=== PATIENT | female | born 1970 | race Caucasian/White ===

== ENCOUNTER 2024-06-23 06:55 | Inpatient (IN) ==
--- NOTE | 2024-05-08 11:57 | PAT Medication Instructions ---
Medication Instructions Date of Service May 08, 2024 Home Medications cholecalciferol (vitamin D3) 25 mcg (1,000 unit) tablet (Vitamin D3) 25 mcg PO DAILY cyanocobalamin (vitamin B-12) 1,000 mcg tablet (Vitamin B-12) 1,000 mcg PO DAILY ferrous sulfate 325 mg (65 mg iron) capsule,extended release 0 mg PO DAILY semaglutide (weight loss) 1.7 mg/0.75 mL subcutaneous pen injector (Wegovy) 1.7 mg subcut WK MEDICATION INSTRUCTIONS: DO NOT take the morning of surgery cholecalciferol (vitamin D3) 25 mcg (1,000 unit) tablet (Vitamin D3) 25 mcg PO DAILY cyanocobalamin (vitamin B-12) 1,000 mcg tablet (Vitamin B-12) 1,000 mcg PO DAILY ferrous sulfate 325 mg (65 mg iron) capsule,extended release 0 mg PO DAILY Other Notes NEED TO STOP 7 DAYS PRIOR TO SURGERY (may not take after 06/16/23): semaglutide (weight loss) 1.7 mg/0.75 mL subcutaneous pen injector (Wegovy) 1.7 mg subcut WK Remember: NOTHING TO EAT OR DRINK AFTER MIDNIGHT If you have any questions please call us at [phone] or [phone] or [phone] or [phone]
--- NOTE | 2024-05-29 09:40 | Anesthesiology Consultation ---
Date of Service May 29, 2024 Assessment & Plan (1) Encounter for pre-operative examination: - Check BSG DOS - Infectious disease screening: Per assessment on 05/29/24- No known recent infectious disease contacts or current infectious disease symptoms. - Medication instructions: Patient previously taking Semaglutide weekly which she states is now discontinued with last dose being 05/29/24. She was aware not to take GLP-1 weekly injectables 7 days prior to surgery. - Patient acceptable risk for surgery pending surgeon-ordered PCP preop evaluation (Dr. Fco Malagon, appt 06/10). Chart Review Chart Review: Patient seen in Pre Admission Testing Teaching & Discussion Pre-Anesthesia Teaching/Discussion Notes: Instructed NPO after midnight before surgery,except medications with 15 cc of water. Medication instructions provided according to the PAT guidelines. History Surgery Operation Date: 06/23/24 07:45 Proposed Procedures p L3-L4 Decompression and Fusion, L4-L5 Hardware Removal, Spinal Cord Monitoring - Caden Pepe, Height/Weight Height: 5 ft 2 in Weight: 92 kg Allergies Allergy/AdvReac Type Severity Reaction Status Date / Time aspirin Allergy Unknown Hives Verified 05/05/24 08:33 cefadroxil Allergy Unknown Hives Verified 05/05/24 08:33 Medications Home Medications Medication Instructions Recorded Confirmed Last Taken cyanocobalamin (vitamin B-12) 1,000 mcg PO DAILY 05/05/24 05/05/24 Unknown 1,000 mcg tablet (Vitamin B-12) Vitamin D3 2 tab PO DAILY 05/29/24 05/29/24 Unknown iron 18 mg tablet 18 mg PO DAILY 05/29/24 05/29/24 Unknown pediatric multivitamin no.76 1 tab PO DAILY 05/29/24 05/29/24 Unknown (Flintstones Complete chewable tablet) Past Medical History Medical History Low iron "Borderline" Lumbar stenosis Pre-diabetes Thyroid nodule Under surveillance, next follow up Spring 2025 TMJ (temporomandibular joint disorder) Dx 1990, multiple surgeries No locking in past several years Exercise / Class Metabolic Activity III < 4 Walking/Shop/Light housework Past Family History Family History Other Family history of colon cancer in mother Past Surgical History Surgical History History of bilateral breast reduction surgery History of History of cholecystectomy History of colonoscopy History of D&C Several History of hernia surgery History of hysterectomy + USO + appendectomy History of laminectomy History of lumbar fusion History of surgery Multiple r/t TMJ [place] teeth removed Past Anesthesia History No Hx of Anesthesia Complications and No Family Hx of Anesthesia Complications History of PONV No Hx of PONV and No Hx of Motion Sickness Social History Smoking Status: Never smoker Do You Dip or Chew Tobacco: No Hx Alcohol Use: Yes alcohol intake frequency: holidays/special occasions only (Very rare) Hx Substance Use: No substance use type: does not use Review of Systems Patient denies chest pain, shortness of breath, fever, chills, cough, wheezing. Physical Exam Vital Signs BP 135/87 P 80 TEMP WNL SP02 97%RA RESP 16 Physical Full cervical extension range of motion. Full TMJ range of motion. TMD 3 finger breaths Mallampati Score III Dentition: full upper plate Lungs: clear throughout to auscultation Cardiac: regular rate and rhythm, no murmurs noted Spine: normal Carotid arteries: negative bruit Extremities: no LE edema Lab Results Anesthesia Preop Results Results Anesthesia Widget: WBC 5.99 K/ul (4.8-10.8) 05/29/24 Hgb 12.7 g/dl (12.0-16.0) 05/29/24 Hct 40.7 % (37.0-47.0) 05/29/24 Plt 278 K/uL (130-400) 05/29/24 Na 139 mmol/L (136-145) 05/29/24 K 4.3 mmol/L (3.5-5.1) 05/29/24 Cl 103 mmol/L (98-107) 05/29/24 CO2 31 mmol/L (21-32) 05/29/24 BUN 9 mg/dl (6-23) 05/29/24 Creat 0.66 mg/dl (0.6-1.2) 05/29/24 Glucose Level 95 mg/dl (70-99(Fasting)) 05/29/24 PT 10.8 Seconds (9.0-12.0) 05/29/24 PTT 29 Seconds (21-31) 05/29/24 INR 1.0 (0.9-1.1) 05/29/24 HA1c 5.1 % (4.5-5.6) 05/29/24 Urine Color Yellow 05/29/24 Urine Appearance Clear (Clear) 05/29/24 Urine pH 6.0 (4.5-7.5) 05/29/24 Urine Specific Virgil 1.015 (1.000-1.030) 05/29/24 Urine Protein Negative (Negative) 05/29/24 Urine Glucose (UA) Negative (Negative) 05/29/24 Urine Ketones Negative (Negative) 05/29/24 Urine Blood Negative (Negative) 05/29/24 Urine Nitrite Negative (Negative) 05/29/24 Urine Bilirubin Negative (Negative) 05/29/24 Urine Urobilinogen Negative (Negative) 05/29/24 Urine Leukocyte Esterase Negative (Negative) 05/29/24 Blood Type O Negative 05/29/24 Antibody Screen NEGATIVE 05/29/24 Testing Electrocardiogram Date: 05/29/24 NSR at 72bpm. "Normal ECG" Chest X-Ray Date: 05/29/24 FINDINGS: The cardiac silhouette measures within normal limits. The hilar and mediastinal structures appear unremarkable. The lungs are clear. The osseous structures appear grossly intact. Lumbar fusion hardware. Surgical clips in the right upper abdominal quadrant. IMPRESSION: No evidence of acute cardiopulmonary disease, communicable disease or tuberculosis.
[~2024-06-23 06:55] MED LIST: ALLERGY Noted to ORDERED Medication SCH; CeleBREX 200 MG CAP PO SCH; ceFAZolin 2000MG 2,000 MG/15 ML SYR IV SCH
[2024-06-23] MEDS: LR 15ML/HR IV SCH (07:44)
[2024-06-23] MEDS: VANCOMYCIN HCL 1,250 MG in SODIUM CHLORIDE 0.9% 250 ML IV SCH (07:44)
[2024-06-23] MEDS: LR 60ML/HR IV SCH (07:47)
[2024-06-23] MEDS: ACETAMINOPHEN 500 MG TAB PO SCH (07:47)
[2024-06-23] MEDS: GABAPENTIN 600 MG DOSE PO SCH (07:47)
[2024-06-23] MEDS ORDERED: fentaNYL citrate PF 100 MCG/2 ML VIAL ONE ×2 (09:06→11:38)
[2024-06-23] MEDS ORDERED: MIDAZOLAM HCL 1 MG/ML 2ML VIAL ONE (09:06)
--- NOTE | 2024-06-23 09:10 | History & Physical Bridge Note ---
Date of Service June 23, 2024 History & Physical Bridge Note I have examined the patient, reviewed the History & Physical and in the interval since the performance of the History & Physical I have noted the following changes of clinical significance: no changes noted
--- NOTE | 2024-06-23 09:12 | History & Physical Report ---
Date of Service June 23, 2024 Assessment & Plan (1) Spondylosis of lumbosacral spine at single level with radiculopathy: Plan: L3-L4 decompression and fusion, hardware removal L4-L5 History of Present Illness Chief Complaint: Back and leg pain Primary Care Provider: NO PCP This is a 54-year-old female who presents chronic persistent back and leg pain and failing course of nonoperative care is here for surgical invention. Allergies Allergy/AdvReac Type Severity Reaction Status Date / Time aspirin Allergy Unknown Hives Verified 06/23/24 07:30 cefadroxil Allergy Unknown Hives Verified 06/23/24 07:30 Home Medications Medication Instructions Recorded Confirmed Type cyanocobalamin (vitamin B-12) 1,000 mcg PO DAILY 05/05/24 05/05/24 History 1,000 mcg tablet (Vitamin B-12) Vitamin D3 2 tab PO DAILY 05/29/24 05/29/24 History iron 18 mg tablet 18 mg PO DAILY 05/29/24 05/29/24 History pediatric multivitamin no.76 1 tab PO DAILY 05/29/24 05/29/24 History (Flintstones Complete chewable tablet) Past Med/Surg History Problem List (Updated 06/23/24 @ 09:11 by Caden Pepe, ) Spondylosis of lumbosacral spine at single level with radiculopathy Encounter for pre-operative examination Medical History Low iron "Borderline" Lumbar stenosis Pre-diabetes Thyroid nodule Under surveillance, next follow up Spring 2025 TMJ (temporomandibular joint disorder) Dx 1990, multiple surgeries No locking in past several years Surgical History History of bilateral breast reduction surgery History of History of cholecystectomy History of colonoscopy History of D&C Several History of hernia surgery History of hysterectomy + USO + appendectomy History of laminectomy History of lumbar fusion History of surgery Multiple r/t TMJ [place] teeth removed Family History Other Family history of colon cancer in mother Social History Smoking Status: Never smoker Do You Dip or Chew Tobacco: No; Hx Alcohol Use: Yes Hx Substance Use: No Preferred Language: P[place]in[place] Communication Ability: Effective Rock Duster Required: No Beliefs That Will Affect Care: None Current Living Situation: Spouse Feels Safe at Home: Yes Assistive Devices: Contacts, Denture - Upper and Glasses Physical Exam Physical Exam: Patient is alert and oriented Heart regular rhythm Lungs clear Results & Data Results & Data Vital Signs (Past 12 Hours) Vital Signs Temp Pulse Resp BP Pulse Ox O2 Del Method 06/23/24 07:48 36.7 C 83 20 149/99 H 97 Room Air
[2024-06-23] MEDS ORDERED: ATROPINE SULFATE 0.1 MG/ML 10ML SYR IV PRN (09:24)
[2024-06-23] MEDS ORDERED: ONDANSETRON INJ 2 MG/ML 2 ML VIAL IV PRN ×2 (09:24→13:45)
[2024-06-23] MEDS ORDERED: ePHEDrine sulfate 50 MG/ML AMP IV PRN (09:24)
[2024-06-23] MEDS ORDERED: ONDANSETRON INJ 2 MG/ML 2 ML VIAL ONE (09:36)
[2024-06-23] MEDS ORDERED: ROCURONIUM BROMIDE 10 MG/ML 5 ML VIAL IV ONE ×2 (09:36→10:19)
[2024-06-23] MEDS ORDERED: PROPOFOL IV EMULSION 10 MG/ML 20 ML VIAL IV ONE (09:36)
[2024-06-23] MEDS ORDERED: LIDOCAINE 2% 2 ML VIAL/AMP(20MG/ML) INFIL ONE (09:36)
[2024-06-23] MEDS ORDERED: DEXAMETHASONE SOD INJ 4 MG/ML VIAL ONE (09:36)
[2024-06-23] MEDS: BUPIVACAINE/EPINEPHRINE 0.25% 1:200,000 30 ML VIAL ONE (10:29)
[2024-06-23] MEDS ORDERED: diphenhydrAMINE 50 MG/ML VIAL ONE (10:39)
[2024-06-23] MEDS ORDERED: SUGAMMADEX SODIUM 200 MG/2 ML VIAL IV ONE (10:41)
[2024-06-23] MEDS: ceFAZolin 2000MG 2,000 MG/15 ML SYR IV ONE (11:02)
[2024-06-23] MEDS: FLOSEAL HEMOSTATIC MATRIX 10ML TOP ONE (11:29)
[2024-06-23] MEDS: ceFAZolin 330 MG/ML 1 GM VIAL ONE (11:33)
--- NOTE | 2024-06-23 11:36 | Operative Report ---
Post Operative Report Pre & Post Diagnosis Operation Date: 06/23/24 09:15 Pre-Op Diagnosis: #1 lumbar spondylosis with radiculopathy. #2 lumbar Regional Spinal Stenosis with Radiculopathy Post-Op Diagnosis: Same I identified the patient and participated in the time-out.: Yes Procedure Operation Date: 06/23/24 09:15 Actual Procedures #1 removal of instrumentation L4-L5. #2 exploration of fusion L4-L5. #3 lumbar decompression bilateral medial facetectomies and foraminotomies L2-L3 L3-L4. #4 posterior spinal fusion L3-L4. #5 placement posterior instrumentation using gold and screws L3-L5. #6 interbody fusion L3-L4. #7 placement of Spira 10 x 26 mm at L3-L4. #8 placement locally harvested morselized autograft and posterior gutters. #9 placement infuse collagen sponge, with Koros in the posterior lateral gutters and os design interbody space. #10 application of versa wrap of the exposed dura. Surgeon Caden Pepe, DO Tactical Debriefer Laila Mullins Estimated Blood Loss 200 Findings See Below The patient is 5 foot 2 weighing over 91 kg a BMI in excess of 37. The patient's body habitus did contribute to significant technical difficulty with positioning exposure and the procedure itself and at least 50% increased operative time. Specimens None Indications This is a 54-year-old female presents above-mentioned diagnosis after failing course of nonoperative care is here for surgical invention. Description of Procedure Patient was met with identified informed sent obtained. Patient was then taken to the operative suite underwent intubation placed in a prone position on the Tobias table atop the Terrance frame. All bony prominences well-padded eyes inspected to ensure no external pressure placed upon them. This point the lumbar spine was prepped and draped in normal sterile fashion. Sharp dissection with the assistance of Bovie cautery from down to and exposing the lamina and transverse processes of L3 and the instrumentation at L4-L5 bilaterally. I then proceeded move the hardware bilaterally. Explored the fusion mass appeared to be intact. Informed complete laminectomy of L3 with bilateral male facetectomies and foraminotomies addressing severe spinal stenosis. This was followed by partial laminectomy of L2 with bilateral medial facetectomies also all subarticular stenosis. Pedicle screws then placed at L3 L4-5 bilaterally with assistance of fluoroscopy the proper size mara contoured and placed. By way of a transforaminal approach on the right a discectomy of L3-L4 was performed endplates guided to subcortical bleeding bone and a 10 x 26 mm Spira cage filled with os design bone graft tapped in position. The rods were then locked into final position bilaterally. The transverse processes of L3-L4 burred to subcortical bleeding bone. Infuse collagen sponge, with Koros and local autograft placed in the posterior lower gutters. Versa wrap placed over the exposed dura. 15 round BRITT drain inserted. The incision was then closed with 1 Vicryl in the fascia 2-0 Vicryl subcutaneously and 4 Monocryl for final skin closure. Steri-Strips sterile dressing placed. Patient waken taken PACU stable condition. Please note spinal cord monitoring was utilized at the procedure no changes noted. Laila Mullins was present throughout the entire surgery and while the patient positioning complex portion of the surgery and final skin closure. I attest to the content of the Intraoperative Record and any orders documented therein. Any exceptions are noted below.
[2024-06-23] MEDS ORDERED: GLYCOPYRROLATE 0.2 MG/ML VIAL ONE (11:37)
--- NOTE | 2024-06-23 11:58 | Fluoroscopy Report ---
FL lumbar spine 2-3V CLINICAL HISTORY: L3-L4 DECOMP/FUSION, L4-L5 HARDWARE REMOVAL COMPARISON STUDY: None. FLUOROSCOPY TIME: 12 seconds. Ramón,r: 11.45 mGy FLUOROSCOPIC IMAGES: 2 FINDINGS: Fluoroscopy was provided during hardware removal and subsequent L3-L4 discectomy with inter body spacer placement. Posterior decompression is noted. There is bilateral pedicle screw fusion from L3 through L5 with interconnecting rods. Hardware is intact. IMPRESSION: Fluoroscopy provided during hardware removal, subsequent L3-L4 discectomy and L3-L5 deco mpression and fusion. ACT 112: Negative or not required by law. Electronically signed by: Satish Cui M.D. 06/23/2024 11:56 AM
[2024-06-23] MEDS: fentaNYL citrate PF 100 MCG/2 ML VIAL IV PRN (12:20)
[2024-06-23] MEDS ORDERED: oxyCODONE HCL IR 5 MG TAB (IMMEDIATE RELEASE) PO PRN (13:45)
[2024-06-23] MEDS ORDERED: DO NOT ADMINISTER FLU VACCINE PRN (13:45)
[2024-06-23] MEDS ORDERED: DO NOT ADMINISTER PNEUMOCOCCAL VACCINE PRN (13:45)
[2024-06-23] MEDS ORDERED: LORazepam 0.5 MG TAB PO PRN (13:45)
[2024-06-23] MEDS ORDERED: SOD PHOSPHATE/SOD BIPHOSPHATE ENEMA 132 ML BTL PR PRN (13:45)
[2024-06-23] MEDS ORDERED: diphenhydrAMINE Capsule 25 MG CAP PO PRN (13:45)
[2024-06-23] MEDS ORDERED: PROMETHAZINE 12.5 MG/50.5 ML BAG IV PRN (13:45)
[2024-06-23] MEDS ORDERED: NALOXONE HCL 0.4 MG/1 ML VIAL/CARP IV PRN (13:45)
[2024-06-23] MEDS ORDERED: LORazepam 2 MG/1 ML VIAL IV PRN (13:45)
[2024-06-23] MEDS ORDERED: METOCLOPRAMIDE HCL INJ 5 MG/ML 2 ML VIAL IV PRN (13:45)
[2024-06-23] MEDS ORDERED: MAGNESIUM HYDROXIDE SUSP 30 ML UDC PO PRN (13:45)
[2024-06-23] MEDS ORDERED: HYDROmorphone INJ 1 MG/ML SYRINGE IV PRN (13:45)
[2024-06-23] MEDS ORDERED: ACETAMINOPHEN 1,000 MG/100 ML VIAL IV PRN (13:45)
[2024-06-23] MEDS ORDERED: HYDROmorphone INJ 0.5 MG/0.5 ML SYR IV PRN (13:45)
[2024-06-23] MEDS ORDERED: bisacodyL 10 MG SUPP PR PRN (13:45)
[2024-06-23] MEDS ORDERED: ONDANSETRON 4 MG OD TAB PO PRN (13:45)
[2024-06-23] MEDS ORDERED: FAMOTIDINE 20 MG TAB PO PRN (13:45)
[2024-06-23] MEDS ORDERED: ALUMINUM/MAGNESIUM SUSP 30 ML UDC PO PRN (13:45)
[2024-06-23] MEDS ORDERED: hydrOXYzine HCl 25 MG TAB PO PRN (13:45)
[2024-06-23] MEDS ORDERED: ACETAMINOPHEN 500 MG TAB PO PRN (13:45)
--- NOTE | 2024-06-23 14:11 | Hospitalist Consultation ---
Date of Consultation June 23, 2024 Assessment & Plan (1) Spondylosis of lumbosacral spine at single level with radiculopathy: Plan #S/p lumbar spine surgery Performed on 06/[address] Pepe Perioperative antibiotics, DVT PPx, pain control, and fluids per the primary team Patient is not on supplemental oxygen at baseline Continue to wean off O2 Agree with a.m. CBC, BMP; we will follow Patient does not currently take any medications on a daily basis Do not recommend any changes at this time Agree with current medical management: Disposition: MedSurg Clear liquid diet and advance as tolerated VTE PPx: SCD/teds Thank you for allowing us to persuade in the care of this patient, please reach out with any questions or concerns; will follow for A.M. labs. History of Present Illness Reason for Consultation: Medical management Requesting Physician: Caden Pepe DO Attending Physician: Caden Pepe DO History of Present Illness Jeannie is a pleasant 54-year-old female with PMH of spondylosis of the lumbosacral spine and lumbar radiculopathy. She presented on 06/23 for a lumbar decompression of L3-L5 with Dr. Pepe. Per review of operative note, EBL was listed as 200 cc, and patient's body habitus did contribute to significant regan hnical difficulty leading to increased operative time. Per review of patient's vitals postop, she was mildly tachycardic around 104 bpm following the procedure, but has since returned to a normal heart rate of 75 bpm; SpO2 97% on 2L NC. She reports her lower back pain is 0/10 at time of consult. Her only complaint is of sore throat, but she reports she has been drinking water fine since the surgery, this has been helping with her sore throat. She has not tried eating since the surgery. She has not gotten up or tried to move around yet. She denies using supplemental oxygen at baseline or CPAP at night. She does not take any medicine on a daily basis; only takes vitamins. She not take any pain medicine prior to coming into the hospital. She denies any significant PMH; no history of diabetes or DVT/PE. No new complaints at this time. ROS: Patient endorses sore throat. Patient denies fever, chills, sweating, dizziness/lightheadedness, headache, rashes, chest pain, chest palpitations, pleuritic CP, SOB, cough, abdominal pain, N/V/D, changes in urinary or bowel habits, saddle anesthesia, or numbness or tingling in the lower extremities bilaterally. Allergies Allergy/AdvReac Type Severity Reaction Status Date / Time aspirin Allergy Unknown Hives Verified 06/23/24 07:30 cefadroxil Allergy Unknown Hives Verified 06/23/24 07:30 Home Medications Medication Instructions Recorded Confirmed Type cyanocobalamin (vitamin B-12) 1,000 mcg PO DAILY 05/05/24 05/05/24 History 1,000 mcg tablet (Vitamin B-12) Vitamin D3 2 tab PO DAILY 05/29/24 05/29/24 History iron 18 mg tablet 18 mg PO DAILY 05/29/24 05/29/24 History pediatric multivitamin no.76 1 tab PO DAILY 05/29/24 05/29/24 History (Flintstones Complete chewable tablet) oxycodone 5 mg tablet 5 mg PO Q6H PRN pain #30 tabs 06/23/24 Rx tramadol 50 mg tablet 50 mg PO Q6H PRN pain, moderate 06/23/24 Rx #30 tabs Patient History Medical History Low iron "Borderline" Lumbar stenosis Pre-diabetes Thyroid nodule Under surveillance, next follow up Spring 2025 TMJ (temporomandibular joint disorder) Dx 1990, multiple surgeries No locking in past several years Surgical History History of bilateral breast reduction surgery History of History of cholecystectomy History of colonoscopy History of D&C Several History of hernia surgery History of hysterectomy + USO + appendectomy History of laminectomy History of lumbar fusion History of surgery Multiple r/t TMJ [place] teeth removed Family History Other Family history of colon cancer in mother Social History Smoking Status: Never smoker Do You Dip or Chew Tobacco: No; Hx Alcohol Use: Yes Hx Substance Use: No Preferred Language: Belarusian Communication Ability: Effective Small Parts Assembler Required: No Beliefs That Will Affect Care: None Current Living Situation: Spouse Feels Safe at Home: Yes Assistive Devices: Contacts, Denture - Upper and Glasses Review of Systems Review of Systems: See HPI above Physical Exam Physical Exam: General: no acute distress; pleasant affect; non-toxic appearing; well- nourished; cooperative; SpO2 97% on 1L NC HEENT: normocephalic, atraumatic; no scleral icterus; PERRLA; vision and hearing grossly intact Neck: supple; trachea midline Skin: warm, dry without signs of tenting; no cyanosis; no rashes, bruising, lesions, or erythema noted CV: chest wall NTP; RRR; S1/S2 normal; no murmurs/rubs/gallops; pulses intact and symmetric at radial, DP, and PT Lungs: no acute respiratory distress; symmetrical chest wall expansion; clear breath sounds across all lung de guzman w/o adventitious sounds; no wheezing ABD: Soft, NTP; BS present; no rebound/guarding; no distention Back: Upper spine is NTP; lower spine around the surgical site is NTP; patient reports that sensation is intact; surgical dressing in place without signs of drainage or infection MSK: no tics or fasciculations; no edema noted in the LEs b/l (note: SCDs/teds in place); patient demonstrates ability to wiggle toes/plantarflex/dorsiflex bilaterally; +5 strength when lifting legs from the bed supine Neuro: A&Ox3; normal mood and affect; fluent speech; no focal deficits; patient reports sensation is intact and symmetric in the lower extremities bilaterally assessed via light touch Results & Data Results & Data Vital Signs (Past 12 Hours) Vital Signs Temp Pulse Pulse Resp BP BP Pulse Ox 06/23/24 13:15 75 16 130/80 97 06/23/24 13:00 80 12 136/80 97 06/23/24 12:45 103 H 12 127/78 97 06/23/24 12:30 36.6 C 94 H 12 113/76 95 06/23/24 12:20 103 H 14 124/79 95 06/23/24 12:10 96 H 14 117/72 95 06/23/24 12:00 104 H 16 127/80 97 06/23/24 11:50 36 C L 104 H 16 135/86 97 06/23/24 07:48 36.7 C 83 20 149/99 H 97 O2 Del Method O2 Flow Rate 06/23/24 13:15 Nasal Cannula 2 06/23/24 13:00 Nasal Cannula 2 06/23/24 12:45 Nasal Cannula 2 06/23/24 12:30 Nasal Cannula 2 06/23/24 12:20 Oxymask 2 06/23/24 12:10 Oxymask 4 06/23/24 12:00 Oxymask 6 06/23/24 11:50 Oxymask 6 06/23/24 07:48 Room Air Diagnostic Findings Lumbar Spine X-Ray 06/23/24 00:00 FL lumbar spine 2-3V CLINICAL HISTORY: L3-L4 DECOMP/FUSION, L4-L5 HARDWARE REMOVAL COMPARISON STUDY: None. FLUOROSCOPY TIME: 12 seconds. Ka,r: 11.45 mGy FLUOROSCOPIC IMAGES: 2 FINDINGS: Fluoroscopy was provided during hardware removal and subsequent L3-L4 discectomy with interbody spacer placement. Posterior decompression is noted. There is bilateral pedicle screw fusion from L3 through L5 with interconnecting rods. Hardware is intact. IMPRESSION: Fluoroscopy provided during hardware removal, subsequent L3-L4 discectomy and L3-L5 decompression and fusion. ACT 112: Negative or not required by law. Electronically signed by: Satish Cui M.D. 06/23/2024 11:56 AM PG Care Time/CCT Total # of Minutes Spent Total Time Spent with Patient: Total time spent is greater than 50% in coordination of care (as documented) at patient's floor/unit and/or counseling patient: [place] [address] IN/OBS CONSULT LVL 2,35M Patient Type Established History Detailed Exam Detailed Medical Decision Making Low Complexity Diagnoses Spondylosis of lumbosacral spine at single level with radiculopathy M47.27
--- NOTE | 2024-06-23 15:28 | Anesthesiology Progress Note ---
Date of Service June 23, 2024 Anesthesia Post Procedure Vital Signs Vital Signs: Temp Pulse Pulse Resp BP BP Pulse Ox 06/23/24 14:29 97.5 F L 18 130/84 97 06/23/24 14:00 97.7 F 85 16 142/88 H 100 06/23/24 13:30 06/23/24 13:30 98.1 F 76 14 130/80 95 06/23/24 13:15 75 16 130/80 97 06/23/24 13:00 80 12 136/80 97 06/23/24 12:45 103 H 12 127/78 97 06/23/24 12:30 97.9 F 94 H 12 113/76 95 06/23/24 12:20 103 H 14 124/79 95 06/23/24 12:10 96 H 14 117/72 95 06/23/24 12:00 104 H 16 127/80 97 06/23/24 11:50 96.8 F L 104 H 16 135/86 97 06/23/24 07:48 98.1 F 83 20 149/99 H 97 O2 Del Method O2 Flow Rate 06/23/24 14:29 Nasal Cannula 1 06/23/24 14:00 Nasal Cannula 1 06/23/24 13:30 Nasal Cannula 1 06/23/24 13:30 Nasal Cannula 2 06/23/24 13:15 Nasal Cannula 2 06/23/24 13:00 Nasal Cannula 2 06/23/24 12:45 Nasal Cannula 2 06/23/24 12:30 Nasal Cannula 2 06/23/24 12:20 Oxymask 2 06/23/24 12:10 Oxymask 4 06/23/24 12:00 Oxymask 6 06/23/24 11:50 Oxymask 6 06/23/24 07:48 Room Air Pain Intensity Lower Back: Pain Intensity: 5 Transfer of Care Handoff Completed per policy Notes Mental Status: alert / awake / arousable and participated in evaluation Patient Amnestic to Procedure: Yes Nausea / Vomiting: adequately controlled Pain: adequately controlled Airway Patency, RR, SpO2: stable & adequate BP & HR: stable & adequate Hydration State: stable & adequate Anesthetic Complications: no major complications apparent and Pt Satisfied with anesthetic care
[2024-06-23] MEDS: CLINDAMYCIN/D5W 600 MG/50 ML BAG IV SCH (17:40)
[2024-06-23] MEDS: DOCUSATE SODIUM/SENNA 50/8.6MG TAB PO SCH (20:38)
[2024-06-24] MEDS: POLYETHYLENE (MIRALAX) 17 GM PACK PO SCH (05:35)
[2024-06-24 06:32] LABS: Basophils # (auto) 0.03 K/uL (0.00-0.20); Basophils % (auto) 0.3 %; Immature Granulocytes # (auto) 0.03 K/uL (0.01-0.20); Immature Granulocytes % (auto) 0.3 %; Lymphocytes # (auto) 1.57 K/uL (1.20-3.40); Lymphocytes % (auto) 16.8 %; Mean Corpuscular Hemoglobin 25.8 pg (25.0-34.0); Mean Corpuscular Hgb Conc 32.4 g/dL (32.0-36.0); Mean Corpuscular Volume 79.8 fL (80.0-100.0); Mean Platelet Volume 10.8 fL (9.4-12.4); Monocytes # (auto) 0.74 K/uL (0.11-0.59); Monocytes % (auto) 7.9 %; Neutrophils % (auto) 74.7 %; Platelet Count 255 K/uL (130-400); RDW Coefficient of Variation 17.4 % (11.5-14.5); RDW Standard Deviation 51.2 fL (36.4-46.3); Red Blood Count 4.26 M/uL (4.20-5.40); White Blood Count 9.37 K/ul (4.8-10.8)
[2024-06-24 06:34] LABS: BUN Creatinine Ratio 17.6 (10-20); Calcium 8.3 mg/dl (8.6-10.3); Creatinine Clr Calc Pharmacy 98.5 ml/min
[2024-06-24] MEDS: CHOLECALCIFEROL 10 MCG (400 UNITS) TAB PO SCH (08:45)
[2024-06-24] MEDS: CYANOCOBALAMIN (B-12) 500 MCG TABLET PO SCH (08:45)
[2024-06-24] MEDS: dexAMETHasone 6 MG in SYRINGE 0 ML IV SCH (08:46)
[2024-06-24] MEDS: traMADol HCL 50 MG TABLET PO PRN (08:46)
[2024-06-24] MEDS: MULTIVITAMIN CHEWABLE TAB PO SCH (08:46)
[2024-06-24] MEDS ORDERED: NON-FORMULARY MEDICATION (Iron 18 mg Tablet) PO SCH (09:00)
--- NOTE | 2024-06-24 10:07 | Orthopedic Progress Note ---
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 Admission and Anticipated Discharge Date Admission Date: June 23, 2024 Subjective Back pain controlled leg pain improved Physical Exam Physical Exam: Patient in the chair at the bedside. She is comfortable. Is concerned to testing. Results & Data Vital Signs (Past 12 Hours) Vital Signs Temp Pulse Pulse Resp BP Pulse Ox O2 Del Method 06/24/24 07:24 36.8 C 87 18 132/80 98 Room Air 06/24/24 03:12 37.0 C 100 H 16 123/76 96 Room Air 06/23/24 23:05 36.9 C 90 16 123/87 93 Room Air Queries Orthopedic Spine Obesity: Yes
--- NOTE | 2024-06-24 11:11 | Hospitalist Progress Note ---
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 Pepe Perioperative antibiotics, DVT PPx, pain control, and fluids per the primary team Now off oxygen. CBC shows Hgb 11.0, was 12.7 preoperatively. acute blood loss anemia vs dilutional. Also with microcytosis--> recommend ongoing workup for iron deficiency anemia with PCP after discharge BMP without acute abnormalities Patient has no other medical hx - hx of HTN, but no longer on medication after weight loss. BPs well controlled here. Dispo: medically stable. Thank you for allowing us to participate in the care of this patient, medicine will sign off. Please reconsult with any new concerns. Admission and Anticipated Discharge Date Admission Date: June 23, 2024 Supervising Physician Co-Signing Physician Notes PA Supervision Note: I did not personally see or examine the patient today, but I verified all scott points of PARVIZ Dick's assessment and plan with the following exceptions/additions: None Subjective Patient seen sititng up in the chair. Pain well controlled. Passing gas, no BM y et Confirms she only takes vitamins at home. Review of Systems Review of Systems: All systems reviewed & are unremarkable except as noted in Subjective Physical Exam Physical Exam: General: NAD, VS as above Resp: normal respiratory effort, lungs clear to auscultation CV: RRR, no murmur, Abd: soft Extremities: Moves all extremities, no edema Back: dressing c/d/i, BRITT drain intact - serosanguineous drainage Neuro: A&O x3, Results & Data Results & Data Vital Signs (Past 12 Hours) Vital Signs Temp Pulse Pulse Resp BP Pulse Ox O2 Del Method 06/24/24 11:03 97.7 F 103 H 18 114/78 95 Room Air 06/24/24 07:24 98.2 F 87 18 132/80 98 Room Air 06/24/24 03:12 98.6 F 100 H 16 123/76 96 Room Air Laboratory Results cbc and chemistry reviewed PG Care Time/CCT Total # of Minutes Spent Total Time Spent with Patient: Total time spent is greater than 50% in coordination of care (as documented) at patient's floor/unit and/or counseling patient: Coding Level of Care Code 99351 SUB INP/OBS CARE MIN Diagnoses Spondylosis of lumbosacral spine at single level with radiculopathy M47.27
[2024-06-24 20:12] VITALS: O2SAT 96
[2024-06-25 07:36] VITALS: BP 136/83; PULSE 83; RESP 18; TEMP 98.4
--- NOTE | 2024-06-25 08:41 | Discharge Summary ---
Date of Service June 25, 2024 Admission HPI Per Admitting Provider This is a 54-year-old female who presents chronic persistent back and leg pain and failing course of nonoperative care is here for surgical invention. Principal Diagnosis Lumbar spinal stenosis with spondylosis and radiculopathy Discharge Data Allergies Allergy/AdvReac Type Severity Reaction Status Date / Time aspirin Allergy Unknown Hives Verified 06/23/24 07:30 cefadroxil Allergy Unknown Hives Verified 06/23/24 07:30 Consultations 06/23/24 13:45 Consult Hospitalist Routine Procedures Performed Operation Date: 06/23/24 09:15 Actual Procedures p L3-L4 Decompression and Fusion, Spinal Cord Monitoring(Not Applicable) - Caden Pepe DO s L4-L5 Hardware Removal(Not Applicable) - Caden Pepe DO Ordered Studies 06/23/24 [place] lumbar spine 2-3V Routine Hospital Course (1) Spondylosis of lumbosacral spine at single level with radiculopathy: Patient underwent lumbar decompression patient tolerated this well second orthopedic for postoperative. Postop she progressed well. BRITT drain decreased appropriately. Excellent strength testing. Subsequently discharged home. Discharge orders instructions from the chart for further review. Total Time Total Time Spent Total Time Spent (In Minutes): 20 minutes Discharge Plan Discharge Items Patient Disposition: Home - Self-Care Reason For Visit: Lumbar Regional Spinal Stenosis with Radiculopathy Discharge Diagnosis: Lumbar spondylosis with radiculopathy Activity: As commented below Non-emergency contact: Primary Care Provider Call non-emergency contact if: you have any medication questions Follow-up/Referrals: PCP,NO [Primary Care Provider] - Diet: Regular Addtl Attending Provider Instructions: ACTIVITY RECOMMENDATIONS: SELF CARE INSTRUCTIONS AFTER THORACIC/LUMBAR FUSIONS 1. You may walk to your tolerance. It is good exercise for your legs and back. Expect some back and intermittent leg aches and pains. 2. You may perform "counter-top" level activities (make a sandwich, adriane with a project, etc.). 3. No bending or lifting of more than 10 pounds or back twisting of any nature (roll like a log when turning in bed). 4. You may ride in a car for 20-30 minutes at a time. No driving until after your first visit with your doctor. 5. Frequent changes of position and restricting sitting to 30 minutes at a time will help limit the amount of back spasms and stiffness you may experience. 6. You may discontinue the use of ambulatory aids (cane, crutches, etc.) once your strength and confidence allow. 7. You may aluminum welder the shower and let water strike your incision when you arrive home at least once daily. Do not take a tub bath, sit in a hot tub or go into a swimming pool until after your first recheck in the office. 8. You may resume previous diet. SPECIAL CARE INSTRUCTIONS: VERY IMPORTANT TO READ AND REVIEW A. Your surgical incision has been closed with a cosmetic suture under the skin that will dissolve in about 6 weeks. In 14 days, you can use a pair of clean scissors and cut the suture that is left outside of the skin at the ends of your incision. 1. The small skin tapes can be removed 7 days after surgery if they have not fallen off by that point. 2. You may keep the wound open to air as much as possible to promote healing after post-op day number 5 unless told otherwise by your doctor. 3. If you think the wound looks like it is becoming infected (redness or worsening drainage) and/or you are experiencing fever, chill or worsening back pain and muscle spasms, contact the office so that we may evaluate you as soon as possible. B. Complications are uncommon, but please contact us if you have any signs or symptoms of: 1. wound infection (fever higher than 102.5 degrees F, redness, separation of wound, drainage, or increasing pain from the incision) 2. blood clots in legs (pain, swelling, redness and warmth in legs) 3. urinary tract infection (fever higher than 102.5 degrees F, burning upon urination or increased frequency of urination) 4. nerve problems (inability to walk on your toes or heels, numbness, loss of bowel or bladder control) 5. any other symptoms that concern you C. Please call the office at if you have any concerns or questions about your operation or recovery. D. No smoking! Smoking drastically decreases the chance of a solid fusion. E. Do not take any anti-inflammatory medications (Indocin, Advil, Motrin, Aspirin, Naprosyn, etc.) as these may inhibit the chance of a solid fusion. Tylenol is okay to take for pain. MANAGING PAIN AFTER SPINAL SURGERY 1. Narcotic medication is intended for short-term use and will be provided for surgical pain. Surgical pain usually lasts for a period of 4-6 weeks. Narcotic medication includes Percocet, Vicodin, Darvocet, Tylenol #3 or Lortab. 2. Longer-term pain is more appropriately treated with non-narcotic medication such as Tylenol ES. 3. Muscle spasm is not appropriately treated with narcotics. Muscle relaxers such as Soma, Flexeril or Skelaxin can be used along with Tylenol ES. 4. Remember that we all live with some "aches and pains". This is not unusual or uncommon after an injury or as we get older. a. Back pain is expected and may include muscle spasms for 4 to 6 weeks after surgery. The pain should gradually improve. If the pain worsens for no apparent reason, please contact the office. b. Intermittent leg pain may also be experienced and should not be concerned about unless it worsens for no apparent reason. If so, please contact the office. 5. We will provide appropriate medication within the normal guidelines of their prescribed use. We will also be very cautious and aware of potential abuse and extended duration of patients' medication needs. a. Pain medications are for your comfort and to assist with sleep and rest so that the tissue can heal. They are not provided in order to return to normal activity and should not be used through the day. To do so or worsening pain at night can result from ongoing tissue damage and development of tolerance to the prescribed medicine. 6. Please allow 2-3 days to process refills. Prescriptions will not be mailed but must be picked up at the office. FOLLOW UP VISIT: Keep your scheduled follow-up appointment. Any questions, please call the office at . Pending Studies at Discharge: No Stand-Alone Forms: My [employer], Smoking Cessation Medications and DC Order Prescriptions: New tramadol 50 mg tablet 50 mg PO Q6H PRN (Reason: pain, moderate) Qty: 30 0RF oxycodone 5 mg tablet 5 mg PO Q6H PRN (Reason: pain) Qty: 30 0RF Continued cyanocobalamin (vitamin B-12) [Vitamin B-12] 1,000 mcg Tablet 1,000 mcg PO DAILY iron 18 mg Tablet 18 mg PO DAILY Vitamin D3 2 tab PO DAILY Flintstones Complete Tablet,Chewable 1 tab PO DAILY Discharge Orders: Discharge Order (Routine); Ordered 06/25/24 Ordered By: Caden Pepe Admission Data Admit Date/Time: 06/23/24 11:40 Attending Provider: Caden Pepe Admit Provider: Caden Pepe Primary Care Provider: PCP,[id number]
== END 2024-06-25 11:47 | disposition home or self-care (01) | DRG 402 ==
LOC: ASU 06:55 → 3E 11:40